=== PATIENT | male | born 1955 | race Caucasian/White ===

== ENCOUNTER 2021-05-29 12:41 | Inpatient (IN) | payer OTHER ==
[~2021-05-29] VITALS: Ht 172.7 cm; Wt 74.5 kg
[2021-05-29 12:46] VITALS: BP 152/90
[2021-05-29 13:21] LABS: ABSOLUTE NEUTROPHILS 7.5 thou/uL (1.4-8.2); BASOPHILS 0.4 % (0.0-2.0); HEMATOCRIT 34.6 % (42.0-52.0); HEMOGLOBIN 11.2 gm/dL (14.0-18.0); LYMPHOCYTES 15.7 % (24.0-44.0); MCH 24.3 pg (26.0-34.0); MCHC 32.3 g/dL (28.0-37.0); MCV 75.4 fL (80.0-100.0); MONOCYTES 8.5 % (1.0-8.0); PLATELET COUNT 241 thou/uL (150-400); POLYS 74.4 % (36.0-66.0); RBC 4.59 mil/uL (4.50-6.00); RDW 19.1 % (10.5-14.5); WBC 10.1 thou/uL (4.0-11.0)
[2021-05-29 13:30] LABS: ANION GAP 12 mmol/L (7-16); BUN 31 mg/dL (7-18); CALCIUM 9.3 mg/dL (8.5-10.1); CHLORIDE 102 mmol/L (98-107); CO2 24 mmol/L (21-32); CREATININE 1.2 mg/dL (0.7-1.3); GLUCOSE 163 mg/dL (74-106); POTASSIUM 4.3 mmol/L (3.5-5.1); SODIUM 138 mmol/L (136-145)
[2021-05-29 13:38] LABS: URINE BILIRUBIN NEGATIVE (Negative); URINE BLOOD 3+ (Negative); URINE CLARITY CLOUDY; URINE COLOR YELLOW; URINE GLUCOSE-RANDOM* NEGATIVE (Negative); URINE KETONES TRACE (Negative); URINE PROTEIN (DIPSTICK) 2+ (Negative); URINE SPECIFIC GRAVITY >= 1.030 (1.005-1.035); URINE UROBILINOGEN 0.2 E.U./dl (0.2-1.0)
[2021-05-29 13:39] LABS: ALBUMIN 3.6 g/dL (3.4-5.0); SGOT 9 U/L (15-37); SGPT 21 U/L (30-65); TOTAL BILIRUBIN 0.4 mg/dL (0.2-1.0); TOTAL PROTEIN 8.2 g/dL (6.4-8.2); TROPONIN-I <0.06 ng/mL (<0.06)
[2021-05-29 13:43] LABS: URINE LEUKOCYTES-REFLEX 2+ (Negative); URINE NITRITE-REFLEX POSITIVE (Negative)
--- NOTE | 2021-05-29 13:48 | EKG ---
[place] [address] [facility] [place] [address] ELECTROCARDIOGRAM REPORT Name: RUTH NICOLE Room #: [facility]#: [id number] Admission: 05/29/21 Attend Phys: Discharge: Date of : 59 Report #: [id number] [facility] ED Test Date: 2021-05-29 Test Time: 13:01:44 Pat Name: RUTH NICOLE Department: Room: Gender: M [employer]: : 1955 Requested By: Kayla Bullock Order Number: [id number] MD: Robles Mckenzie Measurements Intervals [place] Rate: 119 P: AR: QRS: -82 QRSD: 104 T: 87 QT: 318 QTc: 448 Interpretive Statements Sinus tachycardia Left anterior fascicular block Abnormal R-wave progression, late transition Probable left ventricular hypertrophy Nonspecific T wave abnormalities No previous ECG available for comparison Electronically Signed On 05-29-2021 13:47:54 CDT by Robles Mckenzie [email or web address] <ELECTRONICALLY SIGNED> By: Robles Mckenzie MD 05/29/21 1347 1301 1301 Robles Mckenzie MD /EPI
[2021-05-29 13:51] LABS: AMORPHOUS URATES Few /LPF (None Seen); BACTERIA-REFLEX >30 Many /HPF (None Seen); CASTS None Seen /LPF (None Seen); SQUAMOUS 0-3 Few /LPF (0-3); URINE WBC-REFLEX >25 Many /HPF (0-5)
[2021-05-29 14:46] LABS: ANISOCYTOSIS 2+
[2021-05-30] VITALS (9 sets, daily range): BP systolic 135–151; BP diastolic 53–82
[2021-05-30 05:36] LABS: HEMATOCRIT 26.5 % (42.0-52.0); HEMOGLOBIN 8.7 gm/dL (14.0-18.0); MCH 24.8 pg (26.0-34.0); MCHC 32.8 g/dL (28.0-37.0); MCV 75.8 fL (80.0-100.0); RBC 3.49 mil/uL (4.50-6.00); RDW 19.2 % (10.5-14.5); WBC 6.5 thou/uL (4.0-11.0)
[2021-05-30 05:46] LABS: CALCIUM 7.6 mg/dL (8.5-10.1); CREATININE 0.9 mg/dL (0.7-1.3); POTASSIUM 3.7 mmol/L (3.5-5.1)
[2021-05-30] MEDS ORDERED: DIVALPROEX SOD125 M1 PO (06:09)
[2021-05-30] MEDS ORDERED: LEVOFLOXACIN500 MG PO (06:10)
[2021-05-30] MEDS ORDERED: LORAZEPAM 1 MG T1 MG PO (06:10)
[2021-05-30] MEDS ORDERED: MILK OF MA400 MG/5 M PO (06:11)
[2021-05-30] MEDS ORDERED: SEROQUEL 25 MG25 M1 PO (06:11)
[2021-05-30] MEDS ORDERED: GEODON40 MG PO (06:13)
[2021-05-30] MEDS ORDERED: ZYPREXA10 MG IM ×2 (06:14→06:17)
[2021-05-31 11:29] LABS: HEMOGLOBIN 10.2 gm/dL (14.0-18.0)
[2021-05-31 15:22] VITALS: BP 145/81
[2021-05-31 16:54] VITALS: BP 135/64
[2021-05-31 19:40] VITALS: BP 154/61
[2021-06-01 06:08] VITALS: BP 119/67
[2021-06-01 07:53] VITALS: BP 146/80
[2021-06-01] MEDS ORDERED: MACROBID 100 M100 M1 PO (13:17)
[2021-06-01 20:17] VITALS: BP 166/86
[2021-06-02 07:56] VITALS: BP 136/75
[2021-06-02 15:28] VITALS: BP 140/67
[2021-06-02 20:15] VITALS: BP 137/102
[2021-06-03 05:43] LABS: ABSOLUTE NEUTROPHILS 3.1 thou/uL (1.4-8.2); BASOPHILS 0.5 % (0.0-2.0); EOSINOPHILS 3.7 % (0.0-3.0); HEMATOCRIT 28.7 % (42.0-52.0); HEMOGLOBIN 9.4 gm/dL (14.0-18.0); LYMPHOCYTES 24.7 % (24.0-44.0); MCH 24.8 pg (26.0-34.0); MCHC 32.8 g/dL (28.0-37.0); MCV 75.5 fL (80.0-100.0); MONOCYTES 7.2 % (1.0-8.0); PLATELET COUNT 217 thou/uL (150-400); POLYS 63.9 % (36.0-66.0); WBC 4.9 thou/uL (4.0-11.0)
[2021-06-03 06:07] LABS: ALBUMIN 2.9 g/dL (3.4-5.0); CALCIUM 8.1 mg/dL (8.5-10.1); CREATININE 0.8 mg/dL (0.7-1.3); POTASSIUM 3.4 mmol/L (3.5-5.1); TOTAL BILIRUBIN 0.3 mg/dL (0.2-1.0); TOTAL PROTEIN 6.7 g/dL (6.4-8.2)
[2021-06-03 08:18] VITALS: BP 159/82
[2021-06-03 15:35] VITALS: BP 157/79
[2021-06-04 08:40] VITALS: BP 182/90
[2021-06-04 14:40] VITALS: BP 143/82
[2021-06-04 20:11] VITALS: BP 127/90
[2021-06-05 08:56] VITALS: BP 132/76
[2021-06-05 16:47] VITALS: BP 126/68
[2021-06-05 20:24] VITALS: BP 138/84
[2021-06-06 08:26] VITALS: BP 138/76
[2021-06-06 17:17] VITALS: BP 134/71
[2021-06-06 20:26] VITALS: BP 118/70
[2021-06-07 07:47] VITALS: BP 127/66
[2021-06-07 16:07] VITALS: BP 132/81
[2021-06-07 18:00] VITALS: BP 132/81
[2021-06-07 21:17] VITALS: BP 138/87
[2021-06-08 21:36] VITALS: BP 147/93
[2021-06-09 17:34] VITALS: BP 127/70
[2021-06-09 20:55] VITALS: BP 137/85
[2021-06-10 07:57] VITALS: BP 150/100
[2021-06-10 15:22] VITALS: BP 134/85
[2021-06-10 19:43] VITALS: BP 141/94
[2021-06-11 07:51] VITALS: BP 137/91
[2021-06-11 15:30] VITALS: BP 140/93
[2021-06-12 08:10] VITALS: BP 150/88
[2021-06-12 21:27] VITALS: BP 156/87
[2021-06-13 07:57] VITALS: BP 119/95
[2021-06-13 16:10] VITALS: BP 152/102
[2021-06-13 20:20] VITALS: BP 149/66
[2021-06-14 07:49] VITALS: BP 163/90
[2021-06-14 15:45] VITALS: BP 159/87
[2021-06-14 16:46] LABS: HEMATOCRIT 33.7 % (42.0-52.0); HEMOGLOBIN 10.9 gm/dL (14.0-18.0); MCH 24.6 pg (26.0-34.0); MCHC 32.4 g/dL (28.0-37.0); MCV 75.8 fL (80.0-100.0); RBC 4.44 mil/uL (4.50-6.00); WBC 8.9 thou/uL (4.0-11.0)
[2021-06-14 17:01] LABS: CALCIUM 8.9 mg/dL (8.5-10.1); POTASSIUM 3.6 mmol/L (3.5-5.1)
[2021-06-14 20:00] VITALS: BP 142/60
[2021-06-15 08:15] VITALS: BP 146/85
[2021-06-15 18:53] VITALS: BP 158/99
[2021-06-15 19:29] VITALS: BP 144/101
[2021-06-15 21:00] VITALS: BP 143/72
[2021-06-16 04:23] VITALS: BP 109/78
[2021-06-16 08:17] VITALS: BP 131/88
[2021-06-16] MEDS ORDERED: SEROQUEL 50 MG50 MG PO (11:30)
[2021-06-16] MEDS ORDERED: MIRALAX17 GM PO (11:30)
[2021-06-16] MEDS ORDERED: LORAZEPAM 1 MG T1 MG PO (11:30)
[2021-06-16] MEDS ORDERED: DEPAKOTE SPRIN125 MG PO (11:30)
[2021-06-16] MEDS ORDERED: OLANZAPINE ODT5 MG PO (11:30)
--- NOTE | 2021-06-16 13:45 | EKG ---
[address] [address] ELECTROCARDIOGRAM REPORT Name: RUTH NICOLE Room #: 461- ADM IN M.R.#: [id number] Admission: 05/29/21 Attend Phys: Ruth Roche MD Discharge: Date of : 59 Report #: [id number] [facility] Test Date: 2021-06-16 Test Time: 12:17:16 Pat Name: RUTH NICOLE Department: Room: 461 Gender: M [employer]: : 1955 Requested By: Ruth Roche Order Number: [id number] MD: Patrice Toscano Measurements Intervals [place] Rate: 125 P: 79 [place]: 144 QRS: -83 QRSD: 106 T: 84 QT: 318 QTc: 459 Interpretive Statements Sinus tachycardia Abnormal R-wave progression, late transition Probable left ventricular hypertrophy Compared to ECG 05/29/2021 13:01:44 T-wave abnormality no longer present Electronically Signed On 06-16-2021 13:45:17 CDT by Patrice Toscano [email or web address] <ELECTRONICALLY SIGNED> By: Patrice Toscano MD, [facility] 06/16/21 1345 1217 1217 Patrice Toscano MD, [facility] /EPI
[2021-06-16 19:25] VITALS: BP 147/83
[2021-06-17 08:21] VITALS: BP 145/95
--- NOTE | 2021-06-17 15:03 | 2DMMODE ---
[facility] [place] [address] 2 D/M-MODE ECHOCARDIOGRAM Name: RUTH NICOLE Room #: 461-P ADM IN M.R.#: [id number] Admission: 05/29/21 Attend Phys: Ruth Roche MD Discharge: Date of : 59 Report #: [id number] THIS REPORT FOR: cc: MARTELL RUIZ Physician not on staff Robles Mckenzie MD ~ APPROVED REPORT Study performed: 06/17/2021 13:25:07 EXAM: Limited 2D, Doppler, and color-flow Echocardiogram Patient Location: In-Patient Room #: 461 Status: routine BSA: 1.92 HR: 120 bpm BP: 147/83 mmHg Rhythm: Tachycardia Other Information Study Quality: Technically Limited Indications Tachycardia 2D Dimensions IVSd: 9.70 (7-11mm) LVOT Diam: 22.01 (18-24mm) LVDd: 35.95 mm PWd: 11.06 (7-11mm) Ascending Ao: 31.69 (22-36mm) LVDs: 22.65 (25-40mm) Left Atrium: 28.24 (27-40mm) Aortic Root: 36.83 mm Pulmonary Valve PV Peak Akshat.: 1.70 m/s PV Peak Gr.: 11.50 mmHg Left Ventricle The left ventricle is normal size. There is normal left ventricular wall thickness. The left ventricular systolic function is normal. The left ventricular ejection fraction is within the normal range. LVEF is 60-65%. This study is not technically sufficient to allow evaluation of the LV diastolic function. Aortic Valve Aortic valve is trileaflet. [facility] [address] [place] [address] 2 D/M-MODE ECHOCARDIOGRAM Name: RUTH NICOLE Room #: 461-P ADM IN ..#: [id number] Admission: 05/29/21 Attend Phys: Maren Benedict Discharge: Date of : 59 Report #: [id number] Tricuspid Valve Unable to assess PA pressure. <Conclusion> Limited study. The left ventricle is normal size. There is normal left ventricular wall thickness. The left ventricular systolic function is normal. Aortic valve is trileaflet. <ELECTRONICALLY SIGNED> By: Robles Mckenzie MD 06/17/21 1502 1502 150 Robles Mckenzie MD /INF
[2021-06-17 19:26] VITALS: BP 151/86
[2021-06-18 08:13] VITALS: BP 151/98
[2021-06-18 11:27] VITALS: BP 148/81
[2021-06-18 17:30] VITALS: BP 158/93
[2021-06-18 19:24] VITALS: BP 114/83
[2021-06-19 07:31] VITALS: BP 105/80
[2021-06-19 15:51] VITALS: BP 101/51
[2021-06-19 19:34] VITALS: BP 136/68
[2021-06-20 08:45] VITALS: BP 112/63
[2021-06-20 09:37] LABS: HEMATOCRIT 30.1 % (42.0-52.0); HEMOGLOBIN 9.4 gm/dL (14.0-18.0); MCH 23.8 pg (26.0-34.0); MCHC 31.2 g/dL (28.0-37.0); MCV 76.4 fL (80.0-100.0); RBC 3.94 mil/uL (4.50-6.00); RDW 19.2 % (10.5-14.5); WBC 7.4 thou/uL (4.0-11.0)
[2021-06-20 09:56] LABS: ALBUMIN 2.4 g/dL (3.4-5.0); CREATININE 0.9 mg/dL (0.7-1.3); POTASSIUM 3.3 mmol/L (3.5-5.1); TOTAL BILIRUBIN 0.3 mg/dL (0.2-1.0); TOTAL PROTEIN 5.6 g/dL (6.4-8.2)
[2021-06-20 14:14] LABS: FOLIC ACID 17.2 ng/mL (8.6-58.9)
[2021-06-20 16:12] VITALS: BP 135/73
[2021-06-20 18:21] LABS: ABSOLUTE NEUTROPHILS 4.8 thou/uL (1.4-8.2); BASOPHILS 0.5 % (0.0-2.0); HEMATOCRIT 27.4 % (42.0-52.0); HEMOGLOBIN 8.9 gm/dL (14.0-18.0); LYMPHOCYTES 24.1 % (24.0-44.0); MCH 24.9 pg (26.0-34.0); MCHC 32.3 g/dL (28.0-37.0); MONOCYTES 10.3 % (1.0-8.0); PLATELET COUNT 362 thou/uL (150-400); POLYS 64.1 % (36.0-66.0); RBC 3.56 mil/uL (4.50-6.00); RDW 19.8 % (10.5-14.5); WBC 7.5 thou/uL (4.0-11.0)
[2021-06-20 18:53] LABS: ANISOCYTOSIS 2+; MACROCYTES FEW; OVALOCYTES FEW; POLYCHROMASIA OCCASIONAL
[2021-06-20 19:43] VITALS: BP 144/78
[2021-06-21 06:05] VITALS: BP 122/65
[2021-06-21 08:16] VITALS: BP 121/73
[2021-06-21 16:50] VITALS: BP 118/59
[2021-06-21 19:37] VITALS: BP 134/50
[2021-06-22 07:54] LABS: ABSOLUTE NEUTROPHILS 4.6 thou/uL (1.4-8.2); BASOPHILS 0.2 % (0.0-2.0); EOSINOPHILS 1.2 % (0.0-3.0); HEMATOCRIT 24.5 % (42.0-52.0); LYMPHOCYTES 13.2 % (24.0-44.0); MCH 24.8 pg (26.0-34.0); MCHC 32.8 g/dL (28.0-37.0); MCV 75.6 fL (80.0-100.0); MONOCYTES 9.6 % (1.0-8.0); PLATELET COUNT 351 thou/uL (150-400); POLYS 75.8 % (36.0-66.0); RBC 3.25 mil/uL (4.50-6.00); RDW 19.5 % (10.5-14.5); WBC 6.1 thou/uL (4.0-11.0)
[2021-06-22 07:57] VITALS: BP 109/76
[2021-06-22 08:03] LABS: CALCIUM 7.7 mg/dL (8.5-10.1); CREATININE 0.9 mg/dL (0.7-1.3); PHOSPHORUS 2.4 mg/dL (2.6-4.7); POTASSIUM 3.7 mmol/L (3.5-5.1)
[2021-06-22 17:25] VITALS: BP 139/49
[2021-06-22 19:53] VITALS: BP 141/80
[2021-06-23 07:30] VITALS: BP 128/81
[2021-06-23 17:44] VITALS: BP 138/73
[2021-06-23 19:38] VITALS: BP 154/79
[2021-06-24 17:08] LABS: HEMATOCRIT 29.3 % (42.0-52.0); HEMOGLOBIN 9.3 gm/dL (14.0-18.0)
[2021-06-24 20:43] VITALS: BP 138/82
[2021-06-25 08:15] VITALS: BP 127/68
[2021-06-25 17:37] VITALS: BP 107/65
[2021-06-25 20:13] VITALS: BP 119/53
[2021-06-26 16:07] VITALS: BP 119/61
[2021-06-26 21:49] VITALS: BP 134/77
[2021-06-27 07:28] VITALS: BP 111/72
[2021-06-27 15:52] VITALS: BP 127/57
[2021-06-27 20:17] VITALS: BP 135/71
[2021-06-28 08:06] VITALS: BP 140/72
[2021-06-28 17:28] VITALS: BP 127/57
[2021-06-28 20:03] VITALS: BP 117/76
[2021-06-29 09:28] VITALS: BP 118/57
[2021-06-30 08:15] VITALS: BP 117/72
[2021-06-30 20:22] VITALS: BP 131/62
[2021-07-01 08:24] VITALS: BP 114/59
[2021-07-01 17:02] VITALS: BP 109/59
[2021-07-01 19:17] VITALS: BP 115/73
[2021-07-02 09:14] VITALS: BP 119/66
[2021-07-02] MEDS ORDERED: LORAZEPAM 1 MG T1 MG PO (14:55)
[2021-07-02] MEDS ORDERED: PROTONIX 20 MG20 MG PO (14:56)
[2021-07-02] MEDS ORDERED: FOLIC ACID1 MG PO (14:56)
[2021-07-02] MEDS ORDERED: DEPAKOTE SPRIN125 MG PO (14:56)
[2021-07-02] MEDS ORDERED: TYLENOL325 MG PO (15:00)
[2021-07-02] MEDS ORDERED: SEROQUEL 50 MG50 MG PO (15:00)
[2021-07-02] MEDS ORDERED: NYAMYC15 GM TOP (15:05)
== END 2021-07-02 18:40 | DRG 872 ==
LOC: ER 12:41 → 4W 15:04 → EROBS 15:04 → 4W 05-30 06:36 → EROBS 05-30 07:44 → 4W 05-30 16:56
PROVIDERS: Internal Medicine; Nurse Practitioner Family; Psychiatry & Neurology Psychiatry; ADMIT Hospitalist; ATTEND Hospitalist
PROC: 0T9B80Z Drainage of Bladder with Drainage Device, Via Natural or Artificial Opening Endoscopic (ICD-10-PCS; principal; 2021-06-06)
DX: A41.9 Sepsis, unspecified organism (principal); F02.81 Dementia in other diseases classified elsewhere, unspecified severity, with behavioral disturbance; N30.01 Acute cystitis with hematuria; Z16.12 Extended spectrum beta lactamase (ESBL) resistance; G31.83 Neurocognitive disorder with Lewy bodies; F20.9 Schizophrenia, unspecified; N31.9 Neuromuscular dysfunction of bladder, unspecified; Z20.822 Contact with and (suspected) exposure to COVID-19; K59.00 Constipation, unspecified; F41.9 Anxiety disorder, unspecified; F31.9 Bipolar disorder, unspecified; E11.9 Type 2 diabetes mellitus without complications; R41.0 Disorientation, unspecified; B96.89 Other specified bacterial agents as the cause of diseases classified elsewhere; R41.89 Other symptoms and signs involving cognitive functions and awareness; T83.028A Displacement of other urinary catheter, initial encounter; E87.6 Hypokalemia; D63.8 Anemia in other chronic diseases classified elsewhere; E53.8 Deficiency of other specified B group vitamins; Z88.0 Allergy status to penicillin; Z88.8 Allergy status to other drugs, medicaments and biological substances
CPT/HCPCS: 10045; 10047